=== PATIENT | female | born 1995 | race Caucasian/White ===

== ENCOUNTER 2019-12-17 18:16 | Emergency (ER) | payer OTHER ==
[2019-12-17 18:29] VITALS: BP 121/83; PULSE 87; TEMP 98.4; BMI 20.5
--- NOTE | 2019-12-17 18:30 | PDOC ---
Rapid Medical Evaluation Time Seen by Provider: 12/17/19 18:27 Medical Evaluation: Allergies Allergy/AdvReac Type Severity Reaction Status Date / Time No Known Allergies Allergy Verified 12/17/19 18:25 12/17/19 18:27 I performed a brief in-person evaluation of this patient. Healthy 24-year-old female LMP end of November, had Paragard IUD inserted yesterday morning and is now experiencing vaginal bleeding (3 pads today) and lower abdominal cramping. Pertinent physical exam findings: Alert, no distress. Lower abd/suprapubic tenderness to gentle palpation I have ordered the following: CBC, CMP, T&S, UA, urine hcg Patient to proceed to the ED for further evaluation. 12/17/19 18:29 Discharge Disposition - Diagnosis Vaginal bleeding - Referrals - Patient Instructions - Post Discharge Activity
[2019-12-17 19:03] LABS: BASO % 0.7 % (0-2.0); EOS % 0.3 % (0-4.5); HEMATOCRIT 36.9 % (32.4-45.2); HEMOGLOBIN 12.5 GM/dL (10.7-15.3); LYMPH % 24.8 % (8-40); MCH 28.5 pg (25.7-33.7); MCHC 33.8 g/dl (32.0-36.0); MEAN CELL VOLUME 84.4 fl (80-96); MEAN PLT VOLUME 8.4 fl (7.5-11.1); MONO % 6.9 % (3.8-10.2); NEUT % 67.3 % (42.8-82.8); PLATELET COUNT 332 K/MM3 (134-434); RBC 4.37 M/mm3 (3.60-5.2); RDW 14.5 % (11.6-15.6); WHITE BLOOD COUNT 8.5 K/mm3 (4.0-10.0)
[2019-12-17] MEDS ORDERED: IBUPROFEN 600 MG TABLET (FP) PO ONE ×2 (19:10→19:25)
[2019-12-17 19:11] LABS: EPI CELLS 1.4 /HPF (0-5/HPF); HYALINE CASTS 3 /lpf (0-8); URINE APPEARANCE CLEAR; URINE BACTERIA 16.2 /hpf (NEGATIVE); URINE BILIRUBIN NEGATIVE (NEGATIVE); URINE COLOR YELLOW; URINE GLUCOSE (UA) NEGATIVE (NEGATIVE); URINE KETONE TRACE (NEGATIVE); URINE LEUK ESTERASE NEGATIVE (NEGATIVE); URINE NITRITE NEGATIVE (NEGATIVE); URINE PROTEIN NEGATIVE (NEGATIVE); URINE RBC 68 /hpf (0-4); URINE WBC 1 /hpf (0-5)
[2019-12-17 19:31] LABS: ALBUMIN 4.4 g/dl (3.4-5.0); BILIRUBIN,TOTAL 0.3 mg/dL (0.2-1); CALCIUM 9.3 mg/dL (8.5-10.1); CREATININE 0.8 mg/dL (0.55-1.3); POTASSIUM 3.7 mmol/L (3.5-5.1); TOT PROT 7.8 g/dl (6.4-8.2)
--- NOTE | 2019-12-17 21:13 | PDOC ---
History of Present Illness - General Chief Complaint: Vaginal Bleeding Stated Complaint: ABDOMINAL CRAMPING Time Seen by Provider: 12/17/19 18:27 History Source: Patient Exam Limitations: No Limitations - History of Present Illness Initial Comments: Sandeep pandey is a 24 yo F w a pmh of asthma who presents to the [facility] with 2 days of lower abdominal pain associated with vaginal bleeding. She states she has never had this pain or vaginal bleeding in the past and came to the ER because she wanted to know what was causing her pain and if she was . The patient states she has been saturating around 2 pads per day. She states her pain is worst in the suprapubic region and not present in the right or left lower quadrants. For the last few months her periods have been irregular and associated with heavy vaginal bleeding. LMP: Patient has a mirena in place - LMP end of October. OB: in [place] PSH: None reported Allergies: NKA, NKDA Social Hx: Denies smoking, drinks recreationally, smokes occassional marijuana Past History - Past Medical History Allergies/Adverse Reactions: Allergies Allergy/AdvReac Type Severity Reaction Status Date / Time No Known Allergies Allergy Verified 12/17/19 18:25 Asthma: Yes COPD: No Other medical history: Anxiety. - Immunization History Immunization Up to Date: No - Psycho Social/Smoking Cessation Hx Smoking History: Never smoked Have you smoked in the past 12 months: No Information on smoking cessation initiated: No Hx Alcohol Use: No Drug/Substance Use Hx: No Review of Systems - Review of Systems Able to Perform ROS?: Yes Comments:: CONSTITUTIONAL: Absent: fever, no chills, no fatigue EYES: Absent: visual changes ENT: Absent: ear pain, no sore throat CARDIOVASCULAR: Absent: chest pain, no palpitations RESPIRATORY: Absent: cough, no SOB GI: Present: Abdominal pain Absent: no nausea, no vomiting, no constipation, no diarrhea GENITOURINARY: Present: Vaginal bleeding Absent: dysuria, no frequency, no hematuria MUSKULOSKELETAL: Absent: back pain, no arthralgia, no myalgia SKIN: Absent: rash NEURO: Absent: headache *Physical Exam - Vital Signs Last Vital Signs Temp Pulse Resp BP Pulse Ox 98.4 F 87 20 121/83 98 12/17/19 18:27 12/17/19 18:27 12/17/19 18:27 12/17/19 18:27 12/17/19 18:27 - Physical Exam GENERAL: Well-appearing, well-nourished. No apparent distress. HEENT: Normocephalic, atraumatic. PERRL, EOM intact. CARDIOVASCULAR: Normal S1, S2. Regular rate and rhythm. PULMONARY: No evidence of respiratory distress. Lungs clear to auscultation bilaterally. No wheezing, rales or rhonchi. ABDOMEN: Mild suprapubic TTP. Soft, non-distended. EXTREMITIES: Normal ROM in all four extremities. No gross deformities. SKIN: Warm, dry. No rash NEUROLOGICAL: No focal neurological deficits. PELVIC: External genitalia has red blood around it. No abnormal lesions. Vaginal vault has red blood inside, no lesions or abnormal discharge. Cervix is long and closed. No cervical motion tenderness. Uterus is nontender and normal in size. There is mild right adnexal TTP. Left Adnexa is nontender. ED Treatment Course - LABORATORY CBC & Chemistry Diagram: 12/17/19 18:45 12/17/19 18:45 - ADDITIONAL ORDERS Additional order review: Laboratory Results 12/17/19 12/17/19 12/17/19 18:45 18:45 18:45 Sodium Potassium Chloride Carbon Dioxide Anion Gap BUN Creatinine Est GFR (CKD-EPI)AfAm Est GFR (CKD-EPI)NonAf Random Glucose Calcium Total Bilirubin AST ALT Alkaline Phosphatase Total Protein Albumin Urine Color Yellow Urine Appearance Clear Urine pH 8.0 Ur Specific [place] 1.028 Urine Protein Negative Urine Glucose (UA) Negative Urine Ketones Trace H Urine Blood 2+ H Urine Nitrite Negative Urine Bilirubin Negative Urine Urobilinogen 1.0 Ur Leukocyte Esterase Negative Urine WBC (Auto) 1 Urine RBC (Auto) 68 Urine Casts (Auto) 3 U Epithel Cells (Auto) 1.4 Urine Bacteria (Auto) 16.2 Urine HCG, Qual Negative Blood Type A POSITIVE Antibody Screen Negative 12/17/19 18:45 Sodium 139 Potassium 3.7 Chloride 107 Carbon Dioxide 28 Anion Gap 5 L BUN 11.0 Creatinine 0.8 Est GFR (CKD-EPI)AfAm 119.60 Est GFR (CKD-EPI)NonAf 103.19 Random Glucose 93 Calcium 9.3 Total Bilirubin 0.3 AST 12 L ALT 20 Alkaline Phosphatase 60 Total Protein 7.8 Albumin 4.4 Urine Color Urine Appearance Urine pH Ur Specific [place] Urine Protein Urine Glucose (UA) Urine Ketones Urine Blood Urine Nitrite Urine Bilirubin Urine Urobilinogen Ur Leukocyte Esterase Urine WBC (Auto) Urine RBC (Auto) Urine Casts (Auto) U Epithel Cells (Auto) Urine Bacteria (Auto) Urine HCG, Qual Blood Type Antibody Screen 12/17/19 18:45 RBC 4.37 MCV 84.4 MCHC 33.8 RDW 14.5 MPV 8.4 Neutrophils % 67.3 Lymphocytes % 24.8 Monocytes % 6.9 Eosinophils % 0.3 Basophils % 0.7 - RADIOLOGY Radiology Studies Ordered: Category Date Time Status TRANSVAGINAL ULTRASOUND US [US] Stat Ultrasound 12/17/19 20:43 Ordered Medical Decision Making - Medical Decision Making Sandeep pandey is a 24 yo F w a pmh of asthma who presents to the [facility] with 2 days of lower abdominal pain associated with vaginal bleeding. She states she has never had this pain or vaginal bleeding in the past and came to the ER because she wanted to know what was causing her pain and if she was . The patient states she has been saturating around 2 pads per day. She states her pain is worst in the suprapubic region and not present in the right or left lower quadrants. For the last few months her periods have been irregular and associated with heavy vaginal bleeding. LMP: Patient has a mirena in place - LMP end of October. Vital Signs Temp Pulse Resp BP Pulse Ox 98.4 F 87 20 121/83 98 12/17/19 18:27 12/17/19 18:27 12/17/19 18:27 12/17/19 18:27 12/17/19 18:27 DDx IBNLT: , anemia, fibroids, endometriosis, IUD malplacement vs IUD infection, UTI/pylo Plan: Labs, Urine, TVUS, analgesia, OB fu Labs: Unremarkable. Normal Hb. Urine: No sign of infection, positive for blood. TVUS: IUD well seated w/in endometrial cavity, no evidence of torsion Disposition: OB fu Discharge - Discharge Information Problems reviewed: Yes Clinical Impression/Diagnosis: Vaginal bleeding Condition: Stable Disposition: HOME - Follow up/Referral Referrals: Clyde Muller MD [Staff Physician] - Kris Roblero MD [Staff Physician] - Ciara Stanford MD [Staff Physician] - - Patient Discharge Instructions Patient Printed Discharge Instructions: DI for Vaginal Bleeding Additional Instructions: You came into the ER with vaginal bleeding. we looked at your blood and urine and found no dangerous abnormalities. We did an ultrasound of your uterus and ovaries which showed Please call up the OB doctor we are referring you to and schedule a follow up appointment in the next 3 to 5 days. Come back to the ER immediately if your pain worsens, you get a fever, start vomiting, or have any other new or worsening concerns. Print Language: HUNGARIAN - Post Discharge Activity
[2019-12-17] MEDS ORDERED: ACETAMINOPHEN 325 MG TABLET (FP) PO ONE (21:42)
[2019-12-17] MEDS ORDERED: ACETAMINOPHEN 325 MG TABLET (FP) ONE (21:51)
--- NOTE | 2019-12-17 22:14 | PDOC ---
Documentation entered by Fernando Roberts SCRIBE, acting as scribe for Kanika Stein DO. Kanika Stein DO: This documentation has been prepared by the Armando funes Daniel, SCRIBE, under my direction and personally reviewed by me in its entirety. I confirm that the documentation accurately reflects all work, treatment, procedures, and medical decision making performed by me. Attending Attestation - Resident Resident Name: Isai Galindo - ED Attending Attestation I have performed the following: I have examined & evaluated the patient, The case was reviewed & discussed with the resident, I agree w/resident's findings & plan, Exceptions are as noted - HPI HPI: 12/17/19 21:09 The patient is a 24 year old female with no past medical history here today for evaluation of vaginal bleeding and abdominal pain. The patient reports that she had an IUD placed yesterday and developed heavy bleeding and lower abdominal pain shortly after. She states that she has used 3 pads and states that her LMP was at the end of 11/19. Patient denies headache, lightheadedness. Denies fever, chills. Denies chest pain, shortness of breath. Denies nausea, vomiting, diarrhea. Allergies: NKA - Physicial Exam PE: 12/17/19 21:43 Constitutional: Awake, alert, oriented. No acute distress. Head: Normocephalic. Atraumatic Eyes: PERRL. EOMI. Conjunctivae are not pale. ENT: Mucous membranes are moist and intact. Posterior pharynx without exudates or erythema. Uvula midline. Neck: Supple. Full ROM. No lymphadenopathy. Cardiovascular: Regular rate. Regular rhythm. S1, S2 regular. Distal pulses are 2+ and symmetric. Pulmonary/Chest: No evidence of respiratory distress. Clear to auscultation bilaterally No wheezing, rales or rhonchi. Abdominal: +suprapubic and pelvic tenderness. Soft and non-distended. No rebound, guarding or rigidity. No organomegaly. No palpable masses. Good bowel sounds. Pelvic: +blood in vault. +able to see IUD string. +right adnexal discomfort. Back: No CVA tenderness. Musculoskeletal: No edema. No cyanosis. No clubbing. Full range of motion in all extremities. Nocalf tenderness. Radial/pedal pulses are intact and 2+ bilaterally Skin: Skin is warm and dry. No petechiae. No purpura. Neurological: Alert and oriented to person, place, and time. Cranial nerves II -XII are grossly intact. Normal speech. Strength is grossly symmetric. No sensory deficits. Psychiatric: Good eye contact. Normal interaction, affect and behavior. - Medical Decision Making 12/17/19 22:10 a/p: 24yo female with vaginal bleeding -pt with mirena IUD in place -break through vaginal bleeding this month -pelvic cramping -pt denies cp/sob. no gi symptoms -no hx of sti/std -pts labs sent from [facility] reviewed -ultrasound does not show acute pelvic pathology -pt does not have a INSURANCE ADVISER physician - will give referral -pt with dysfunctional vag bleeding with an IUD -pt stable for dc to home and INSURANCE ADVISER follow up 12/17/19 22:26 pt eloped from the ER prior to dc
== END 2019-12-17 22:43 | disposition home or self-care (01) ==
LOC: JER 18:16
DX: N93.8 Other specified abnormal uterine and vaginal bleeding (principal); Z97.5 Presence of (intrauterine) contraceptive device
CPT/HCPCS: 36415; 76830-TC; 80053; 81003; 84703; 85025; 86850; 86900; 86901; 87086; 99282-25

== ENCOUNTER 2021-03-02 03:54 | Emergency (ER) | payer OTHER ==
[2021-03-02] MEDS ORDERED: methylPREDNISolone NA SUCC 125 MG/2 ML VIAL IVPB ONE (04:34)
[2021-03-02] MEDS ORDERED: methylPREDNISolone NA SUCC 125 MG/2 ML VIAL ONE (04:49)
[2021-03-02 04:56] VITALS: BMI 24.6
[2021-03-02 05:10] LABS: BASO % 0.9 % (0-2.0); EOS % 0.9 % (0-4.5); HEMOGLOBIN 12.1 GM/dL (10.7-15.3); LYMPH % 36.2 % (8-40); MCH 28.1 pg (25.7-33.7); MCHC 34.6 g/dl (32.0-36.0); MEAN CELL VOLUME 81.1 fl (80-96); MEAN PLT VOLUME 8.1 fl (7.5-11.1); MONO % 6.9 % (3.8-10.2); NEUT % 55.1 % (42.8-82.8); PLATELET COUNT 284 K/MM3 (134-434); RBC 4.31 M/mm3 (3.60-5.2); RDW 15.5 % (11.6-15.6); WHITE BLOOD COUNT 8.8 K/mm3 (4.0-10.0)
[2021-03-02 05:25] LABS: POTASSIUM 3.6 mmol/L (3.5-5.1)
[2021-03-02 05:27] LABS: ALBUMIN 4.3 g/dl (3.4-5.0); BLOOD UREA NITROGEN 10.9 mg/dL (7-18); CALCIUM 9.4 mg/dL (8.5-10.1)
[2021-03-02 05:30] LABS: CREATININE 0.7 mg/dL (0.55-1.3)
[2021-03-02 05:32] LABS: BILIRUBIN,TOTAL 0.2 mg/dL (0.2-1); TOT PROT 8.1 g/dl (6.4-8.2)
[2021-03-02 06:43] VITALS: BP 126/89; PULSE 89; TEMP 98.8
== END 2021-03-02 06:50 | disposition home or self-care (01) ==
LOC: JER 03:54
PROC: 3E033NZ Introduction of Analgesics, Hypnotics, Sedatives into Peripheral Vein, Percutaneous Approach (ICD-10-PCS; principal; 2021-03-02)
DX: J45.901 Unspecified asthma with (acute) exacerbation (principal)
CPT/HCPCS: 36415; 71045-TC-FY; 80053; 84703; 85025; 85379; 93005; 93010; 99285-25; C9803; U0003; U0005